=== PATIENT | male | born 1990 | race Caucasian/White ===

== ENCOUNTER 2024-12-22 00:43 | Day surgery (SDC) | payer BC, SELFPAY ==
--- NOTE | 2024-12-10 15:29 | SUR.PREOP ---
[facility] has started construction of its new state of the art ER which will open Spring 2026. With this, we anticipate parking may be a challenge for some our surgical patients and families. Parking spaces are limited but are available for all Surgical, obstetrics, and ER patients sharing this lot. If you arrive and find you are having a hard time finding a parking space, please note that we understand the challenges, please drive around the hospital and park near Hospital Entrance 1. When you enter this entrance, you can ask a volunteer to direct or take you back to the surgical waiting area to check in. We appreciate everyone?s understanding of these expected challenges while we build for your future. Report to the Outpatient Waiting Room, entrance under the green pavilion located off [address], at time _6AM___ on date __12/22/24___. Planned Procedure Time: __730AM___.? Time changes happen often and if your time is changed the preop area will call you the afternoon before. - You and your visitor will be asked to self-screen and do not enter if you have any COVID symptoms. Please call surgeon if you need to reschedule. - A mask is optional within the hospital at this time. Patients may have clear liquids (water, carbonated beverages, clear teas, apple juice) until 3 hours prior to surgery with a maximum of 20 ounces. - No food from midnight until time of surgery and no smoking, or chewing tobacco (or any form of nicotine). No chewing gum, candy or mints. Take only the following medications with a SIP of water on the morning of surgery: __None DO NOT STOP ANY OF YOUR OTHER PRESCRIPTION MEDICATIONS PRIOR TO SURGERY EXCEPT THE FOLLOWING Hold all vitamins and supplements for 3 days per anesthesiologist. Medications to discontinue per physician ____N/a____ Date to take last dose___n/a Please no make-up, nail malagasy, hairspray, perfume, deodorant, or body powder the day of surgery.? No jewelry (including any body piercings) or valuables the day of surgery, leave them at home.? Please take a shower or bath the night before, or the morning of, surgery with an antibacterial soap.? Wear comfortable, loose fitting clothing.? - Jewelry must be removed prior to entering the operating room.? Rings and piercings that are not removed may be cut off. - The hospital will not accept responsibility for valuables.? - Please leave all valuables, including medications, at home the day of surgery. If you are going home after surgery, a licensed residential driver must drive you home.? - NO public transportation without another adult if you receive anesthesia. - We recommend that an adult stay with you for 24 hours following discharge. - We also recommend that you do not drive, make important decision, drink alcoholic beverages, or take any drugs that were not prescribed by your health care provider for at least 24 hours after your discharge time. Follow any additional instructions given to you from your surgeon. Telephone instructions given to __Ari__and asked if any additional questions and then verbalized understanding. Patient advised to call surgeon office or pre surgery nurse liaison [phone] if any additional questions.
[2024-12-10 15:33] VITALS: BMI 34.2
[2024-12-22] VITALS (7 sets, daily range): BP systolic 127–163; BP diastolic 65–90; PULSE 60–73; RESP 14–18; TEMP 35.9–36.1; O2SAT 96–100
--- OUTSIDE RECORDS SUMMARY | 2024-12-22 00:45 | XMS_ITS | Encounter Summary ---
Author Organization [facility] Address [address] [place] [address] Care Team Providers Care Customer Energy Specialist Name Role Phone Shaun Spicer MD Primary Care Provider Reason for Referral * Imaging (Routine) - Canceled Specialty Diagnoses / Procedures Referred By Contac t Referred To Contact RADIOLOGY Diagnoses Elevated liver enzymes Procedures US [facility] LIMITED Shaun Spicer MD [address] [place] [address] Phone: tel: fax: Referral ID Status Reason Start Date Expiration Date V isits Requested Visits Authorized [id number] Canceled 10/27/2024 10/27/2025 1 1 Encounter Details Date Type Department Care Team (Latest Contact Info) Description 10/27/2024 Results Follow-Up [facility] Multispecialty Care - [place] [address] [address] [address] [place] [address] Shaun Spicer MD [facility] [id number] CBC W/DIFF AUTOMATED, COMPREHENSIVE METABOLIC PANEL, LIPID PANEL, Additional followed-up results: 2 Social History Tobacco Use Types Packs/Day Years Used Date Smoking Tobacco: Never Smokeless Tobacco: Never Comments:Counseled by Dr. Lorie hess. Alcohol Use Standard Drinks/Week Comments Yes 23.3 (1 standard drink = 0.6 oz pure alcohol) PHQ-2 Answer Date Recorded Patient Health Questionnaire-2 Score 0 10/26/2024 Sex and Gender Information Value Date Recorded Sex Assigned at Male 10/26/2024 1:28 PM CDT Legal Sex Male 9:[address] Gender Identity Male 10/26/2024 1:28 PM CDT Sexual Orientation Straight 10/26/2024 1: 28 PM CDT documented as of this encounter Plan of Treatment Scheduled Orders Name Type Priority Associated Diagnoses Orde r Schedule US ABD LIMITED Ultrasound Routine Elevated liver enzymes Expected: 10/27/2024, Expires: 10/27/2025 documented as of this encounter Visit Diagnoses Diagnosis Elevated liver enzymes- Primary Nonspecific elevation of levels of transaminase or lactic acid dehydrogenase (LDH) documented in this encounter Additional Health Concerns Assessment Noted Time PHQ-9 Depression Total Score: 3 10/27/19 25 1:59 PM CDT documented as of this encounter Care Teams Customer Energy Specialist Relationship Specialty Start Date End Date Shaun Spicer MD [address] [facility] [address] [place] [address] PCP - General INTERNAL MEDICINE 06/29/22 documented as of this encounter
--- OUTSIDE RECORDS SUMMARY | 2024-12-22 00:45 | XMS_ITS | Encounter Summary ---
Author Organization [facility] Address [address] [place] [address] Care Team Providers Care Agent Producer Name Role Phone Shaun Spicer MD Primary Care Provider Encounter Details Date Type Department Care Team (Latest Contact Info) Description 08/09/2022 Everplacest Message Enc 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
--- OUTSIDE RECORDS SUMMARY | 2024-12-22 00:45 | XMS_ITS | Clinical Summary ---
Author Organization [facility] Address [address] [place] [address] Care Team Providers Care Molder Machine Name Role Phone Shaun Spicer MD Primary Care Provider [phone] Allergies No known active allergies Medications No known medications Active Problems No known active problems Encounters Date Type Department Care Team Description 10/27/2024 Results Follow-Up [place] [address] [place] [address] Shaun Spicer MD CBC W/DIFF AUTOMATED, COMPREHENSIVE METABOLIC PANEL, LIPID PANEL, Additional followed-up results: 2 10/26/2024 1:20 PM CDT Office Visit [place] [address] [place] [id number] Shaun Spicer MD Physical (Had a protein shake at 10 am ); Blood Pressure 10/26/2024 Travel from Last 3 Months Immunizations Immunization Administration Dates Next Due Dtp (Generic) 08/02/1993, 1,01/24/1989,1988,1988 Hepatitis B 06/19/2013,12/15/2012,11/05/2012 Hepatitis B Pediatric 06/08/1998,01/10/1998,11/19 Hib (Generic) 02/26/1990 Influenza (Generic) 12/07/2013,11/19/2012 MMR (MMRII) 08/02/1993,12/31/1989 MODERNA COVID-19 (12+) MRNA, LNP-S, PF, 100 MCG/ 0.5 ML DOSE 11/03/2020,10/06/2020 Polio Opv (Generic) 08/02/1993, 1,01/24/1989,1988,1988 Tdap (Adacel) 10/26/2024 Tdap (Generic) 10/23/2012 Family History Medical History Relation Comments Cancer Father Colon- Age 50 Hypertension Father Early Hearing Loss Maternal Grandfather Heart Disease Maternal Grandfather Stroke Maternal Grandmother Relation Status Comments Father Maternal Grandfather Maternal Grandmother Social History Tobacco Use Types Packs/Day Years Used Date Smoking Tobacco: Never Smokeless Tobacco: Never Tobacco Cessation:Counseling Given: Yes Comments:Counseled by Dr. Spicer. 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 Gender Identity Male 10/26/2024 1:28 PM CDT Sexual Orientation Straight 10/26/2024 1: 28 PM CDT Last Filed Vital Signs Vital Sign Reading Time Taken Comments Blood Pressure 139/80 10/26/2024 2:19 PM CDT Pulse 73 10/26/2024 1:30 PM CDT Temperature 36.3 C (97.3 F) 10/26/2024 1:30 PM CDT Respiratory Rate 18 10/26/2024 1:30 PM CDT Oxygen Saturation 100% 10/26/2024 1:30 PM CDT Inhaled Oxygen Concentration - - Weight 135.8 kg (299 lb 6.4 oz) 10/26/2024 1:30 PM CDT Height 195.6 cm (6' 5) 10/26/2024 1:30 PM CDT Body Mass Index 35.5 10/26/2024 1:30 PM CDT Plan of Treatment Health Maintenance Due Date Last Done Comments HPV Vaccines (1 - 3-dose SCDM series) 08/08/2015 COVID-19 Vaccine ( season) 2024 11/03/2020, 10/06/2020 Influenza Adult (#1) 2024 12/07/2013, 11/20/19 13 Annual Physical 10/26/2025 10/26/2024, 06/29/2022 DTaP, Tdap and Td Vaccines (8 - Td or Tdap) 10/26/2034 10/26/2024, 10/23/2012, 08/02/1993, Additional history exists Hepatitis B Vaccines Completed 06/19/2013, 12/15/2012, 11/05/2012, Additional history exists Hepatitis C Completed 07/06/2022 PHQ-2 (Physician [place]) Completed 10/26/2024 Hepatitis A Vaccines Aged Out No long er eligible based on patient's age to complete this topic Meningococcal B Vaccine Aged Out No l onger eligible based on patient's age to complete this topic Meningococcal Vaccine Aged Out No marlen antonio eligible based on patient's age to complete this topic Pneumococcal Vaccine: Pediatrics (0 to 5 Years) and At-Risk Patients (6 to 49 Years) Aged Out No longer eligible based on patient's age to complete this topic RSV Immunizations Under 20 Months Aged Out No longer eligible based on patient's age to complete this topic Procedures Procedure Name Priority Date/Time Associated Diagnosis Comments HEMOGLOBIN, GLYCOSYLATED Routine 10/26/2024 2:17 PM CDT Annual physical exam General medical exam Drug therapy TSH W/REFLEX Routine 10/26/2024 2:17 PM CDT Annual physical exam General medical exam Drug therapy LIPID PANEL Routine 10/26/2024 2:17 PM CDT Annual physical exam General medical exam Drug therapy COMPREHENSIVE METABOLIC PANEL Routine 10/26/2024 2:17 PM CDT Annual physical exam General medical exam Drug therapy CBC W/DIFF AUTOMATED Routine 10/26/2024 2:17 PM CDT Annual physical exam General medical exam Drug therapy COLLECTION VENOUS BLOOD VENIPUNCTURE Routine 10/26/2024 1:51 PM CDT Annual physical exam General medical exam Drug therapy REMOVE IMPACTED CERUMEN INSTRUMENTATION UNILAT Routine 10/26/2024 1:20 PM CDT Bilateral impacted cerumen HEPATITIS C ANTIBODY Routine 07/06/2022 9:05 AM CDT Annual physical exam General medical exam Encounter for medical examination to establish care Encounter for hepatitis C screening test for low risk patient from Last 3 Months or Most Recently Relevant to Health Maintenance Results * TSH W/REFLEX (10/26/2024 2:17 PM CDT) TSH 2.635 0.358 - 3.740 uIU/ML 10/27/2024 11:36 AM CDT [facility] 10/26/2024 2:17 PM CDT Shaun Spicer MD LABORATORY Final Result Performing Organization Address City/[facility]/ZIP Co de Phone Number [facility] [address] [place] [address], * (ABNORMAL) HEMOGLOBIN, GLYCOSYLATED (10/26/2024 2:17 PM CDT) HGB A1C 5.4 4.5 - 6.2 % 10/27/2024 11:34 AM CDT [facility] ESTIMATED AVG GLUCOSE 108(H) 74 - 106 MG/DL 10/27/2024 11:34 AM CDT [facility] 10/26/2024 2:17 PM CDT Shaun Spicer MD LABORATORY Final Result Performing Organization Address City/[facility]/ZIP Co de Phone Number [facility] [address] [place] [address], * (ABNORMAL) COMPREHENSIVE METABOLIC PANEL (10/26/2024 2:17 PM CDT) SODIUM S/P/B 138 136 - 145 MMOL/L 10/27/2024 11:36 AM CDT [facility] POTASSIUM S/P/B 4.5 3.5 - 5.1 MMOL/L 10/27/2024 11:36 AM CDT -[facility] CHLORIDE S/P/B 102 98 - 107 MMOL/L 10/27/2024 11:36 AM CDT -[facility] CO2 33.7(H) 21 - 32 MMOL/L 10/27/2024 11:40 AM CDT [facility] Comment:RESULTS CONFIRMED-TE ST REPEATED GLUCOSE 96 70 - 99 MG/DL 10/27/2024 11:36 AM CDT [facility] BUN 17 7 - 18 MG/DL 10/27/2024 11:36 AM CDT [facility] CREATININE S/P/B 1.22 0.70 - 1.30 MG/DL 10/27/2024 11:36 AM CDT [facility] CALCIUM S/P/B 9.6 8.4 - 10.5 MG/DL 10/27/2024 11:36 AM CDT [facility] BILIRUBIN TOTAL S/P/B 0.6 0.2 - 1.0 MG/DL 10/27/2024 11:36 AM CDT [facility] ALKALINE PHOSPHATASE S/P/B 22(L) 45 - 115 U/L 10/27/2024 11:36 AM CDT [facility] AST 45(H) 15 - 37 U/L 10/27/2024 11:36 AM CDT -[facility] ALT 78(H) 16 - 63 U/L 10/27/2024 11:36 AM CDT [facility] TOTAL PROTEIN S/P/B 7.1 6.4 - 8.2 G/DL 10/27/2024 11:36 AM CDT -[facility] ALBUMIN S/P/B 4.5 3.4 - 5.0 G/DL 10/27/2024 11:36 AM CDT -[facility] ANION GAP 2.3(L) 5 - 15 MMOL/L 10/27/2024 11:40 AM CDT [facility] Comment:REFERENCE RANGE NOT ESTABLISHED OSMOLALITY (CALC) 287 MOSM/KG 025 11:36 AM CDT [facility] Comment:REFERENCE RANGE NOT ESTABLISHED GFR ESTIMATE 79(L) >90 ML/MIN/1. 73 M2 10/27/2024 11:36 AM CDT [facility] GFR NOTES GFR REFERENCE S: 10/27/2024 11:36 AM CDT [facility] Comment: THE ESTIMATED GFR IS CALCULATED USING THE 2020 CKD-EPI EQUATION. THE FOLLOWING CATEGORIES FOR GRADING RENAL FUNCTION ARE RECOMMENDED BY THE INTERNATIONAL SOCIETY OF NEPHROLOGY (KDIGO 2012 CLINICAL PRACTICE GUIDELINE). G1,NORMAL OR HIGH: >89 ml/min/1.73 m2 G2,MILDLY DECREASED: 60-89 ml/min/1.73 m2 G3A,MILDLY TO MODERATELY DECREASED: 45-59 ml/min/1.73 m2 G3B,MODERATELY TO SEVERELY DECREASED: 30-44 ml/min/1.73 m2 G4,SEVERELY DECREASED: 15-29 ml/min/1.73 m2 G5,KIDNEY FAILURE: <15 ml/min/1.73 m2 10/26/2024 2:17 PM CDT Shaun Spicer MD LABORATORY Final Result [facility] [address] [place] [address], * LIPID PANEL (10/26/2024 2:17 PM CDT) CHOLESTEROL 152 <200 MG/DL 10/27/2024 11:36 AM CDT [facility] TRIGLYCERIDES 88 <150 MG/DL 10/27/2024 11:36 AM CDT [facility] HDL 52 >40 MG/DL 10/27/2024 11:36 AM CDT [facility] LDL-C 82 <100 MG/DL 10/27/2024 11:36 AM CDT [facility] VLDL CALCULATION 18 5 - 28 MG/DL 10/27/2024 11:36 AM CDT [facility] CHOL/HDL RATIO 2.9 0.0 - 4.0 10/27/2024 11:36 AM CDT [facility] LDL/HDL 1.6 0.41 - 2.13 10/27/2024 11:36 AM CDT [facility] NON HDL CHOLESTEROL 100 <140 MG/DL 10/27/2024 11:36 AM CDT [facility] 10/26/2024 2:17 PM CDT Shaun Spicer MD LABORATORY Final Result [facility] [address] [place] [address], * (ABNORMAL) CBC W/DIFF AUTOMATED (10/26/2024 2:17 PM CDT) WBC 5.94 4.00 - 10.80 x10'3/uL 10/26/2024 8:48 PM CDT [facility] RBC 5.25 4.50 - 6.10 x10'6/uL 10/26/2024 8:48 PM CDT [facility] HGB 15.2 13.0 - 18.0 G/DL 10/26/2024 8:48 PM CDT [facility] HCT 45.2 37.0 - 52.0 % 10/26/2024 8:48 PM CDT [facility] MCV 86.1 78.0 - 100.0 FL 10/26/2024 8:48 PM CDT [facility] MCH 29.0 27.0 - 31.0 PG 10/26/2024 8:48 PM CDT [facility] MCHC 33.6 33.0 - 36.0 G/DL 10/26/2024 8:48 PM CDT [facility] RDW 12.2 11.5 - 14.5 % 10/26/2024 8:48 PM CDT [facility] PLT 174 150 - 350 x10'3/uL 10/26/2024 8:48 PM CDT [facility] MPV 11.5(H) 7.4 - 10.4 FL 10/26/2024 8:48 PM CDT [facility] DIFFERENTIAL TYPE AUTOMATED DIFFERENTIAL 10/26/2024 8:48 PM CDT [facility] NEUTROPHILS % 58.4 % 10/26/2024 8:48 PM CDT [facility] LYMPHOCYTES % 30.5 % 10/26/2024 8:48 PM CDT [facility] MONOCYTES % 8.4 % 10/26/2024 8:48 PM CDT [facility] EOSINOPHILS % 1.7 % 10/26/2024 8:48 PM CDT [facility] BASOPHILS % 0.8 % 10/26/2024 8:48 PM CDT [facility] IMMATURE GRANS % 0.2 % 10/26/2024 8:48 PM CDT [facility] ABS. NEUTROPHILS 3.47 1.60 - 8.30 x10'3/uL 10/26/2024 8:48 PM CDT [facility] ABS. LYMPHOCYTES 1.81 0.80 - 4.70 x10'3/uL 10/26/2024 8:48 PM CDT [facility] ABS. MONOCYTES 0.50 0.00 - 1.50 x10'3/uL 10/26/2024 8:48 PM CDT [facility] ABS. EOSINOPHILS 0.10 0.00 - 0.40 x10'3/uL 10/26/2024 8:48 PM CDT [facility] ABS. BASOPHILS 0.05 0.00 - 0.20 x10'3/uL 10/26/2024 8:48 PM CDT [facility] ABS. IMMATURE GRANULOCYTES 0.01 0.00 - 0.03 x10'3/uL 10/26/2024 8:48 PM CDT [facility] 10/26/2024 2:17 PM CDT Shaun Spicer MD LABORATORY Final Result Performing Organization Address City/[facility]/ZIP Co de Phone Number [facility] [address] [place] [address], * REMOVE IMPACTED CERUMEN INSTRUMENTATION UNILAT (10/26/2024 1:20 PM CDT) Narrative Shaun Spicer MD - 10/26/2024 1:20 PM CDT Shaun Spicer MD 10/26/2024 3:08 PM *Ear Cerumen Removal Date/Time: 10/26/2024 1:20 PM Performed by: Shaun Spicer MD Authorized by: Shaun Spicer MD Location details: right ear and left ear Patient tolerance: patient tolerated the procedure well with no immediate complications Comments: Impacted wax removed bilaterally Procedure type: curette Shaun Spicer MD PROCEDURE/MINOR SURGICAL ORDERAB LES Final Result * HEPATITIS C ANTIBODY (07/06/2022 9:05 AM CDT) HEPATITIS C AB NON-REACTI VE NON-REACT CATHERINE 07/06/2022 7:[address] [facility] Comment: ANTIBODIES TO HCV NOT DETECTED. DOES NOT EXCLUDE THE POSSIBILITY OF EXPOSURE TO HCV. 07/06/2022 9:05 AM CDT Shaun Spicer MD LABORATORY Final Result Performing Organization Address City/[facility]/ZIP Co de Phone Number [facility] [address] [place] [address], [id number] from Last 3 Months or Most Recently Relevant to Health Maintenance Insurance [facility] Care Teams Molder Machine Relationship Specialty Start Date End Date Shaun Spicer MD [address] [facility] [address] [place] [address] PCP - General INTERNAL MEDICINE 06/29/22
--- NOTE | 2024-12-22 06:55 | P.PNAN_ITS ---
Anes - Initial Pre Proc Eval Procedure: Operation Date: 12/22/24 07:30 Proposed Procedures p Bilateral Vasectomy - Carlos Bryant MD Date/Time: 12/22/24 06:55 Surgeon: Carlos Bryant MD Pre Op Diagnosis: desires sterilization Patient Data Age: 34 Gender: M Height: 1.96 m Weight: 131 kg Allergies Allergy/AdvReac Type Severity Reaction Status Date / Time No Known Allergies Allergy Verified 12/10/24 15:33 Home Medications ?Medication ?Instructions ?Recorded ?Confirmed ?Type No Home Medications 12/10/24 12/10/24 H istory Patient hx anesthesia problems: none Family hx anesthesia problems: none Results Review: All pre-operative results and documents have been reviewed as part of the pre- operative evaluation. [facility] Social History Social History (Updated 12/22/24 @ 07:06 by Alan Powers DO) Tobacco type: cigars Additional smoking assessment comments: a cigar here and there maybe every few months Alcohol intake: current Alcohol use details: 3-4 drinks most days Living arrangements: with family Spiritual care concerns: No Anes - Eval Final PreProcedure Day of Procedure 12/22/24 06:55 Patient weight: obese Heart: regular rate and rhythm Lungs: clear to auscultation Airway: Mallampati scale class II Neurological: alert and oriented Last oral intake: >/= 8 hours ASA classification: III Emergent: no Anesthetic plan: proceed Anesthesia type and monitoring: general LMA and standard monitoring Results Review: All pre-operative results and documents have been reviewed as part of the pre- operative evaluation. Informed Consent: The patient's anesthetic plan and its attendant risks and benefits were discussed with the patient/family/POA. Questions were solicited and answers provided to the satisfaction of the patient/family/POA.
[2024-12-22] MEDS: LACTATED RINGERS 1,000 ML 30 ML IV CONT (07:00)
--- NOTE | 2024-12-22 07:16 | P.HP_ITS ---
History of Present Illness History of Present Illness Consent: Risks, benefits, and alternatives have been discussed and questions answered. Patient agrees to proceed with procedure. Chief complaint: desires sterilization Narrative: Cristi Morrison is a 34 year old male who was recently evaluated in urology clinic for vasectomy consultation. He desires permanent sterilization. He presents today for bilateral vasectomy in the OR. He denies any changes past his baseline and is ready for the procedure today. Review of Systems Review of Systems: Constitutional: No fevers or chills Eyes: No changes in vision HENT: No hearing loss Cardiovascular: No chest pain or palpitations Respiratory: No shortness of breath, cough, wheezing GI: No abdominal pain, nausea, or vomiting : No dysuria or difficulty urinating Heme: No easy bruising or bleeding Skin: No rash or itching MSK: No myalgias or joint pain Psych: No hallucinations Neuro: No lateralized numbness or tingling PMFSH Social History Social History (Updated 12/22/24 @ 07:06 by Alan Powers DO) Tobacco type: cigars Additional smoking assessment comments: a cigar here and there maybe every few months Alcohol intake: current Alcohol use details: 3-4 drinks most days Living arrangements: with family Spiritual care concerns: No Meds Home Medications and Allergies Home Medications ?Medication ?Instructions ?Recorded ?Confirmed ?Type No Home Medications 12/10/24 12/10/24 H istory Allergies Allergy/AdvReac Type Severity Reaction Status Date / Time No Known Allergies Allergy Verified 12/10/24 15:33 Exam Narrative: General: Alert, no acute distress Head: Normocephalic, atraumatic Eyes: Extraocular movements intact Neck: No JVD, trachea midline Respiratory: Symmetric chest rise, nonlabored breathing on room air CV: Normal rate, adequate peripheral perfusion Abdomen: Soft, nontender, nondistended : Deferred Skin: Warm/dry Extremities: No peripheral edema, no cyanosis Neuro: No focal deficits Psych: Answers questions appropriately, appropriate mood Assessment and Plan Assessment and plan (1) Encounter for sterilization: Code(s): Z30.2 - Encounter for sterilization Status: Acute Plan 34yM who desires permanent sterilization - To OR for bilateral vasectomy - Risks, benefits, alternatives discussed. Patient is amenable to proceed. - Anticiapte discharge home thereafter
--- NOTE | 2024-12-22 07:18 | WPDHPUPDATE1 ---
History and Physical Update Update Date/Time: 12/22/24 07:18 History and Physical has been reviewed, including an updated exam of the patient. There are NO changes in the patient's condition. Risks, benefits, and alternatives have been discussed and questions answered. Patient agrees to proceed with procedure.
[2024-12-22] MEDS: ceFAZolin 3 GM/D5W 100 ML 100 ML IVPB (07:28)
[2024-12-22] MEDS: BUPivacaine HCL 0.25% PF 10 ML VIAL INFILTRATE (07:28)
--- NOTE | 2024-12-22 07:52 | S_PTH ---
PATIENT: Cristi Morrison LOC: [facility] U#:[id number] AGE/SX: 34/M ROOM: RE12/22/[address]: Carlos Bryant MD : [id number] BED: DIS: 12/22/2024 SPEC #: [id number] RECD: 12/22/24 09:23 STATUS: ELI REQ #: [id number] GREGORIO: 12/22/24 07:[address]: Carlos Bryant DEPT: [facility] Surgical RECD BY: Terri Palafox ENTERED: 12/22/24 09:24 SP TYPE: Surgical OTHR DR: Shaun Spicer, Tissues: A - Vas Deferens B - Vas Deferens Procedures: Gross Exam Level 1
[2024-12-22] MEDS: BACITRACIN OINTMENT 15 GM TUBE 1 APPLIC TOPICAL (08:00)
--- NOTE | 2024-12-22 08:15 | W.PM.PROC2 ---
Procedure Note - Detailed Date of Procedure 12/22/24 Pre-op Diagnosis desires sterilization Post-op Diagnosis Same Procedure Performed Bilateral vasectomy Surgeon Carlos Bryant MD Anesthesia General Description of Procedure Under sterile conditions, 0.25% plain marcaine was administered to provide local skin anesthesia and a regional vasal block. Next, the no-scalpel vasectomy approach was used and Janusz forceps were used to spread the skin open the right upper hemiscrotum. A clamp was used to grasp the right vas deferens, which was brought out through the skin opening. A scalpel was used to incise the sheath of the vas and Adson forceps were used to grasp the vas and deliver it out of the sheath. The vas was dissected free of any attachments and a clamp was placed on either side of the freed vas. Next, a 1-2 cm segment of the right vas was cut and collected for pathologic analysis. Thermal cautery was used to cauterize both free ends of the cut vas and a 2-0 silk tie was used to occlude both free ends of the vas underneath both clamps. Attention was then drawn to the left hemiscrotum and the left vas deferens was excised in the exact same fashion. The area was then inspected thoroughly and excellent hemostasis was confirmed. The vas was then reduced back into the scrotum bilaterally. A single horizontal mattress suture of 3-0 chromic was used to close the skin entrance sites on the bilateral upper hemiscrotum. Antibiotic ointment was applied to the entrance sites and gauze was placed over top. The patient tolerated the procedure well and there were no complications noted.
== END 2024-12-22 09:23 | disposition home or self-care (01) ==
PROVIDERS: PCP Internal Medicine; Visit Provider Urology
PROC: (CPT 55250; principal; 2024-12-22 07:30)
DX: Z30.2 Encounter for sterilization (principal); F17.290 Nicotine dependence, other tobacco product, uncomplicated; E66.9 Obesity, unspecified; Z68.35 Body mass index [BMI] 35.0-35.9, adult
CPT/HCPCS: 55250; 88300; J0690; J1100; J2003; J2250; J2405; J2704; J3010; J7120